=== PATIENT | male | born 1965 | race Hispanic/Latino ===

== ENCOUNTER 2022-03-04 12:45 | Emergency (ER) | payer BC, OTHER ==
[~2022-03-04] VITALS: Ht 170.2 cm; Wt 84.8 kg
[2022-03-04] MEDS ORDERED: ORPHENADRINE CITRATE 30 MG/ML ML IM ONE (13:30)
[2022-03-04] MEDS ORDERED: KETOROLAC 30MG VIAL (30MG/ML) IM ONE (13:30)
[2022-03-04 13:34] LABS: BASOPHILS % (AUTO) 0.2 % (0.0-5.0); EOSINOPHILS % (AUTO) 1.4 % (0.0-8.0); HEMATOCRIT 46.8 % (42-54); LYMPHOCYTES % (AUTO) 32.4 % (21.0-51.0); MEAN CORPUSCULAR HEMOGLOBIN 29.5 pg (27.0-33.0); MEAN CORPUSCULAR HGB CONC 33.8 g/dL (32.0-36.0); MEAN CORPUSCULAR VOLUME 87.5 fL (79-99); MONOCYTES % (AUTO) 6.2 % (3.0-13.0); NEUTROPHILS % (AUTO) 59.4 % (40.0-77.0); PLATELET COUNT (AUTO) 210 K/uL (130-400); RED BLOOD CELL COUNT(AUTO) 5.35 MIL/uL (4.50-6.20); RED CELL DISTRIBUTION WIDTH 12.4 % (11.0-15.5); WHITE BLOOD COUNT (AUTO) 5.2 K/uL (4.8-10.8)
[2022-03-04 13:44] LABS: CREATININE 0.8 mg/dL (0.5-1.5); POTASSIUM 4.8 mmol/L (3.5-5.1)
[2022-03-04 13:48] LABS: ALBUMIN 4.2 g/dL (3.5-5.0); BILIRUBIN,TOTAL 0.9 mg/dL (0.2-1.0); TOTAL PROTEIN, SERUM 7.7 g/dL (6.0-8.3)
[2022-03-04] MEDS ORDERED: ONDANSETRON 4MG INJ IVP ONE (14:30)
[2022-03-04] MEDS ORDERED: 0.9%NACL 1000ML 1,000 ML IV ONE (14:30)
[2022-03-04] MEDS ORDERED: MORPHINE 4 MG SYG IVP ONE (14:30)
[2022-03-04] MEDS ORDERED: FAMOTIDINE 20MG VIAL IV ONE (14:30)
[2022-03-04 14:35] VITALS: BP 134/77
[2022-03-04] MEDS ORDERED: IOHEXOL 350 MG/ML 100ML INFUS..BTL IV ONE (14:43)
[2022-03-04] MEDS ORDERED: OMEP20TA20 PO (15:59)
[2022-03-04] MEDS ORDERED: FAMO-136 PO (15:59)
[2022-03-04] MEDS ORDERED: CYCL10TA16 PO (15:59)
== END 2022-03-04 16:11 | disposition home or self-care (01) ==
LOC: EDH 12:45
DX: K52.9 Noninfective gastroenteritis and colitis, unspecified (principal); M62.830 Muscle spasm of back; E11.9 Type 2 diabetes mellitus without complications
CPT/HCPCS: 36415; 71045; 74177; 80053; 83690 ×2; 84484; 85025; 93005; 96372 ×2; 96374; 96375; 99284; J1885; J2270; J2360; J2405; J3490; J7030; Q9967

== ENCOUNTER → 2023-11-30 | Outpatient (CLI) | payer OTHER ==
[~2023-11-30] MED LIST: CYCL10TA16 PO; FAMO-136 PO; OMEP20TA20 PO
== END ==
LOC: RAH 13:47
PROVIDERS: ATTEND Family Medicine
DX: Z13.6 Encounter for screening for cardiovascular disorders (principal)
CPT/HCPCS: 75571